=== PATIENT | male | born 1960 | race Caucasian/White ===

== ENCOUNTER → 2017-03-09 | Outpatient (CLI) | payer OTHER ==
[~2017-03-09] MED LIST: ALBU8.5H3 INH; AMLO5TAB2 PO; CARV12.52 PO; DOCU100C PO; ENAL20TA PO; FAMC250T PO; FLUT10.6 INH; FLUT15.88 NAS; GABA300C10 PO; HYDR-3307 PO; METH750T87 PO; OXYC5CAP4 PO; PANT40TA5 PO; ROSU5TAB PO; TEST100V2 IM; TRAM50TA2 PO
== END | disposition home or self-care (01) ==
LOC: RAD 13:34
PROVIDERS: ATTEND Neurological Surgery
DX: M51.26 Other intervertebral disc displacement, lumbar region (principal); M51.24 Other intervertebral disc displacement, thoracic region; M48.06 Spinal stenosis, lumbar region; N28.1 Cyst of kidney, acquired; G89.29 Other chronic pain; M47.896 Other spondylosis, lumbar region; Z98.1 Arthrodesis status
CPT/HCPCS: 72131; 72146

== ENCOUNTER → 2017-03-21 | Outpatient (CLI) | payer OTHER ==
[~2017-03-21] MED LIST changes: +GADOBUTROL 10 MMOL/10 ML PFS ONE
== END | disposition home or self-care (01) ==
LOC: RAD 13:27
PROVIDERS: ATTEND Family Medicine
DX: G31.84 Mild cognitive impairment of uncertain or unknown etiology (principal); G44.52 New daily persistent headache (NDPH); H53.8 Other visual disturbances
CPT/HCPCS: 70553; A9585

== ENCOUNTER → 2017-09-13 | Outpatient (CLI) | payer OTHER ==
[~2017-09-13] MED LIST changes: -ALBU8.5H3 INH; +ALBU8.5H8 INH; +CALC250T PO; +CEPH-368 PO; +CHOL100012 PO; +CYAN25003 PO; +DOCU-180 PO; -DOCU100C PO; -GADOBUTROL 10 MMOL/10 ML PFS ONE; +L. A1CAP8 PO; +OXYC5CAP2 PO; -OXYC5CAP4 PO; +SUMA100T4 PO; +VITA400C43 PO; +ZONI100C2 PO
== END | disposition home or self-care (01) ==
LOC: CARD 08:45
PROVIDERS: ATTEND Psychiatry & Neurology Child & Adolescent Psychiatry
DX: G43.111 Migraine with aura, intractable, with status migrainosus (principal); G44.021 Chronic cluster headache, intractable; R41.89 Other symptoms and signs involving cognitive functions and awareness
CPT/HCPCS: 95819

== ENCOUNTER → 2017-09-21 | Outpatient (CLI) | payer OTHER ==
[~2017-09-21] MED LIST changes: +GADOBUTROL 10 MMOL/10 ML PFS ONE
== END | disposition home or self-care (01) ==
LOC: RAD 07:49
PROVIDERS: ATTEND Otolaryngology
DX: R13.10 Dysphagia, unspecified (principal); J38.00 Paralysis of vocal cords and larynx, unspecified
CPT/HCPCS: 70543; 74220; A9585

== ENCOUNTER → 2017-12-01 | Outpatient (CLI) | payer OTHER ==
[~2017-12-01] MED LIST changes: -GADOBUTROL 10 MMOL/10 ML PFS ONE
== END | disposition home or self-care (01) ==
LOC: RAD 09:14
PROVIDERS: ATTEND Internal Medicine Infectious Disease
DX: Z79.2 Long term (current) use of antibiotics (principal); T81.4XXS Infection following a procedure, sequela; B95.61 Methicillin susceptible Staphylococcus aureus infection as the cause of diseases classified elsewhere
CPT/HCPCS: 36569; 76937; 77001; C1751

== ENCOUNTER → 2017-12-07 | Outpatient (CLI) | payer OTHER | END | disposition home or self-care (01) | LOC: CLISVCS 16:48 | PROVIDERS: ATTEND Internal Medicine Infectious Disease | DX: R07.89 Other chest pain (principal); R94.31 Abnormal electrocardiogram [ECG] [EKG] | CPT/HCPCS: 93005 ==

== ENCOUNTER → 2018-03-31 | Outpatient (CLI) | payer OTHER ==
[~2018-03-31] MED LIST changes: +GADOBUTROL 10 MMOL/10 ML PFS ONE
== END | disposition home or self-care (01) ==
LOC: RAD 10:57
PROVIDERS: ATTEND Family Medicine
DX: R41.840 Attention and concentration deficit (principal); R51 Headache; R42 Dizziness and giddiness; R53.1 Weakness; R41.3 Other amnesia
CPT/HCPCS: 70553; A9585

== ENCOUNTER → 2018-05-17 | Outpatient (CLI) | payer OTHER ==
[~2018-05-17] MED LIST changes: +EREN70AU INJ; -GADOBUTROL 10 MMOL/10 ML PFS ONE; +[UNRECOGNIZED DRUG - CODE] SC
== END | disposition home or self-care (01) ==
LOC: CFH 07:02
PROVIDERS: ATTEND Nurse Practitioner Family
DX: M48.02 Spinal stenosis, cervical region (principal); M47.892 Other spondylosis, cervical region; Z87.891 Personal history of nicotine dependence; Z88.5 Allergy status to narcotic agent
CPT/HCPCS: 72141

== ENCOUNTER 2018-05-24 06:18 | Day surgery (SDC) | payer OTHER ==
[~2018-05-24] VITALS: Ht 182.9 cm; Wt 84.3 kg
[2018-05-24] MEDS ORDERED: LIDOCAINE 1%-EPI 1:100K, 30ML ONE (07:01)
[2018-05-24] MEDS ORDERED: LACTATED RINGERS 1,000 ML IV SCH (07:10)
[2018-05-24 07:14] VITALS: BP 123/81
[2018-05-24] MEDS ORDERED: AMOXICILLIN PO (07:14)
[2018-05-24] MEDS ORDERED: FENTANYL PF 100 MCG/2ML ONE (07:49)
[2018-05-24] MEDS ORDERED: PROPOFOL 10 MG/ML, 20ML ONE (07:50)
[2018-05-24] MEDS ORDERED: KETOROLAC 30 MG/1 ML IV PRN (09:00)
[2018-05-24] MEDS ORDERED: HYDROcodone/APAP 7.5-325MG/15ML UDC PO PRN (09:00)
[2018-05-24] MEDS ORDERED: FENTANYL PF 100 MCG/2ML IV PRN (09:00)
[2018-05-24] MEDS ORDERED: ONDANSETRON 2MG/ML, 2ML IV PRN (09:00)
[2018-05-24] MEDS ORDERED: PROMETHAZINE 12.5 MG SUPP PR PRN (09:00)
[2018-05-24] MEDS ORDERED: MEPERIDINE/PF 25MG/0.5ML IVPush PRN (09:00)
[2018-05-24] MEDS ORDERED: LABETALOL 5MG/ML, 20ML IV PRN (09:00)
[2018-05-24] MEDS ORDERED: PROCHLORPERAZINE 5 MG/ML, 2ML IM PRN (09:00)
[2018-05-24] MEDS ORDERED: HYDROmorphone 1 MG/ML, 1ML IV PRN (09:00)
== END 2018-05-24 10:30 | disposition home or self-care (01) ==
LOC: OR 06:18 → OUT 10:30
PROVIDERS: ATTEND Otolaryngology
DX: J38.01 Paralysis of vocal cords and larynx, unilateral (principal); I69.354 Hemiplegia and hemiparesis following cerebral infarction affecting left non-dominant side; G43.909 Migraine, unspecified, not intractable, without status migrainosus; Z86.73 Personal history of transient ischemic attack (TIA), and cerebral infarction without residual deficits; Z88.6 Allergy status to analgesic agent; Z88.5 Allergy status to narcotic agent; Z88.8 Allergy status to other drugs, medicaments and biological substances; Z98.890 Other specified postprocedural states; Z87.891 Personal history of nicotine dependence
CPT/HCPCS: 31571; C1878; J2704; J3010; J7120; J3490

== ENCOUNTER → 2018-08-14 | Outpatient (CLI) | payer OTHER ==
[~2018-08-14] MED LIST changes: -AMLO5TAB2 PO; +AMLO5TAB7 PO; +AMOXICILLIN PO; +GADOBUTROL 10 MMOL/10 ML PFS ONE
== END | disposition home or self-care (01) ==
LOC: RAD 07:46
PROVIDERS: ATTEND Registered Nurse
DX: G43.109 Migraine with aura, not intractable, without status migrainosus (principal); R20.2 Paresthesia of skin
CPT/HCPCS: 70553; A9585

== ENCOUNTER → 2018-09-20 | Outpatient (CLI) | payer OTHER ==
[~2018-09-20] MED LIST changes: +AMLO-150 PO; -AMLO5TAB7 PO; -GADOBUTROL 10 MMOL/10 ML PFS ONE
== END | disposition home or self-care (01) ==
LOC: RAD 08:37
PROVIDERS: ATTEND Physical Medicine & Rehabilitation
DX: M48.02 Spinal stenosis, cervical region (principal)
CPT/HCPCS: 72141

== ENCOUNTER → 2018-11-21 | Outpatient (CLI) | payer OTHER | END | disposition home or self-care (01) | LOC: CFH 09:22 | PROVIDERS: ATTEND Neurological Surgery | DX: M50.322 Other cervical disc degeneration at C5-C6 level (principal) | CPT/HCPCS: 72040 ==

== ENCOUNTER 2019-03-09 10:16 | Day surgery (SDC) | payer OTHER ==
[~2019-03-09] VITALS: Ht 182.9 cm; Wt 96.4 kg
[2019-03-09 10:37] VITALS: BP 139/87
[2019-03-09] MEDS ORDERED: SODIUM CHLORIDE 0.9% 1,000 ML IV SCH (11:00)
[2019-03-09] MEDS ORDERED: PLEASE ENTER HEIGHT AND WEIGHT MC SCH (11:00)
[2019-03-09] MEDS ORDERED: HYDR25TA6 PO (11:06)
[2019-03-09] MEDS ORDERED: NEBI5TAB3 PO (11:06)
[2019-03-09] MEDS ORDERED: GABA600T7 PO (11:06)
[2019-03-09] MEDS ORDERED: FLUT1BLS INH (11:06)
[2019-03-09] MEDS ORDERED: LOSA100T14 PO (11:06)
[2019-03-09] MEDS ORDERED: PROPOFOL 10 MG/ML, 20ML ONE (11:45)
== END 2019-03-09 13:20 | disposition home or self-care (01) ==
LOC: CACL 10:16
PROVIDERS: ATTEND Internal Medicine Cardiovascular Disease
DX: I34.0 Nonrheumatic mitral (valve) insufficiency (principal); I34.1 Nonrheumatic mitral (valve) prolapse; I10 Essential (primary) hypertension; E78.2 Mixed hyperlipidemia; Z79.899 Other long term (current) drug therapy; Z88.8 Allergy status to other drugs, medicaments and biological substances; Z90.49 Acquired absence of other specified parts of digestive tract; Z98.890 Other specified postprocedural states
CPT/HCPCS: 93312; 93325; J2704

== ENCOUNTER 2019-03-21 09:46 | Day surgery (SDC) | payer OTHER ==
[~2019-03-21] VITALS: Ht 182.9 cm; Wt 97.3 kg
[~2019-03-21 09:46] MED LIST changes: +FLUT1BLS INH; +GABA600T7 PO; +HYDR25TA6 PO; +LOSA100T14 PO; +NEBI5TAB3 PO
[2019-03-21 10:10] VITALS: BP 136/79
[2019-03-21] MEDS ORDERED: PLEASE ENTER HEIGHT AND WEIGHT MC SCH (10:30)
[2019-03-21] MEDS ORDERED: SODIUM CHLORIDE 0.9% 1,000 ML IV SCH ×2 (11:00→12:33)
[2019-03-21] MEDS ORDERED: FENTANYL PF 100 MCG/2ML ONE (11:36)
[2019-03-21] MEDS ORDERED: BIVALIRUDIN 250 MG ONE (11:36)
[2019-03-21] MEDS ORDERED: MIDAZOLAM 1 MG/ML, 5ML ONE (11:36)
[2019-03-21] MEDS ORDERED: VERAPAMIL 2.5 MG/ML, 2ML ONE (11:36)
[2019-03-21] MEDS ORDERED: TICAGRELOR 90 MG TABLET ONE (11:36)
[2019-03-21] MEDS ORDERED: HEPARIN 1,000 UNITS/ML, 10ML ONE (11:37)
== END 2019-03-21 14:05 | disposition home or self-care (01) ==
LOC: CACL 09:46
PROVIDERS: ATTEND Internal Medicine Cardiovascular Disease
DX: I25.10 Atherosclerotic heart disease of native coronary artery without angina pectoris (principal); I25.83 Coronary atherosclerosis due to lipid rich plaque; I34.0 Nonrheumatic mitral (valve) insufficiency; I10 Essential (primary) hypertension; E78.2 Mixed hyperlipidemia; Z79.899 Other long term (current) drug therapy; Z87.891 Personal history of nicotine dependence; Z88.8 Allergy status to other drugs, medicaments and biological substances; Z91.048 Other nonmedicinal substance allergy status
CPT/HCPCS: 36415; 80048; 85025; 93458; 99156; C1769; C1894; J2250; J3010; J7030; Q9967; J0583; J1644

== ENCOUNTER 2019-04-11 12:59 | Emergency (ER) | payer OTHER ==
[~2019-04-11] VITALS: Ht 182.9 cm; Wt 95.0 kg
--- NOTE | 2019-04-11 14:00 | NUR ---
Pt arrived to room with friend at 1315; placed on monitor; VSS; pt AO; shows no signs of distress; skin pink warm and dry. 1330 MD to bedside; spouse at bedside; known cardiac valve issues; recent cath negative for coronary arterial disease. Family verbalizes understanding of POC.
[2019-04-11 14:12] LABS: BASOPHILS # (AUTO) 0.03 x10^3/uL (0-0.1); BASOPHILS % (AUTO) 0 % (0-1); EOSINOPHILS # (AUTO) 0.04 x10^3/uL (0-0.4); EOSINOPHILS % (AUTO) 1 % (1-7); LYMPHOCYTES # (AUTO) 1.99 x10^3/uL (1-3.4); LYMPHOCYTES % (AUTO) 29 % (22-44); MD NO; MEAN CORPUSCULAR HEMOGLOBIN 30.5 pg (27.5-34.5); MEAN CORPUSCULAR VOLUME 92.3 fL (81-97); MEAN PLATELET VOLUME 8.3 fL (7.4-10.4); MONOCYTES # (AUTO) 0.51 x10^3/uL (0.2-0.8); MONOCYTES % (AUTO) 8 % (2-9); NEUTROPHILS # (AUTO) 4.21 x10^3/uL (1.8-6.8); NEUTROPHILS % (AUTO) 62 % (42-75); PLATELET COUNT 248 x10^3/uL (130-400); RED BLOOD COUNT 5.41 x10^6/uL (4.38-5.82)
[2019-04-11 14:20] LABS: ALBUMIN 4.1 g/dL (3.4-5.0); ANION GAP 7 mmol/L (5-15); CALCIUM 9.6 mg/dL (8.5-10.1); CHLORIDE 106 mmol/L (98-107); CREATININE 1.47 mg/dL (0.7-1.3)
[2019-04-11 15:13] VITALS: BP 134/77
--- NOTE | 2019-04-11 15:39 | NUR ---
Discharge education given by RN; pt verbalized understanding; fu with cardiothoracic surgeon reinforced
== END 2019-04-11 15:41 | disposition home or self-care (01) ==
LOC: ED 14:43
DX: R07.89 Other chest pain (principal); R06.00 Dyspnea, unspecified; I10 Essential (primary) hypertension; E78.00 Pure hypercholesterolemia, unspecified; E78.5 Hyperlipidemia, unspecified; Z87.891 Personal history of nicotine dependence; Z90.49 Acquired absence of other specified parts of digestive tract; Z86.73 Personal history of transient ischemic attack (TIA), and cerebral infarction without residual deficits
CPT/HCPCS: 36415; 71045; 80048; 82040; 83880; 85025; 93005; 99284

== ENCOUNTER 2019-05-03 08:00 | Outpatient (CLI) | payer OTHER | END 2019-05-03 23:59 | disposition home or self-care (01) | LOC: CARD 08:00 | PROVIDERS: ATTEND Thoracic Surgery (Cardiothoracic Vascular Surgery) | DX: Z01.810 Encounter for preprocedural cardiovascular examination (principal); I34.0 Nonrheumatic mitral (valve) insufficiency; I11.0 Hypertensive heart disease with heart failure; I50.9 Heart failure, unspecified; E78.5 Hyperlipidemia, unspecified; G43.909 Migraine, unspecified, not intractable, without status migrainosus; Z88.5 Allergy status to narcotic agent; Z90.49 Acquired absence of other specified parts of digestive tract; Z87.891 Personal history of nicotine dependence | CPT/HCPCS: 93880 ==

== ENCOUNTER 2019-05-04 04:30 | Inpatient (IN) | payer OTHER ==
[~2019-05-04] VITALS: Ht 182.9 cm; Wt 96.9 kg
[2019-05-09 07:39] VITALS: BP 132/84
== END 2019-05-09 10:26 | disposition home or self-care (01) | DRG 219 ==
LOC: 5SO 04:30 → DCLOUNGE 06:54 → CCU 07:16 → CSU 08:36 → 5SO 05-05 14:09 → DCLOUNGE 05-09 10:03
PROVIDERS: ADMIT Thoracic Surgery (Cardiothoracic Vascular Surgery); ATTEND Thoracic Surgery (Cardiothoracic Vascular Surgery)
PROC: 02UG08Z Supplement Mitral Valve with Zooplastic Tissue, Open Approach (ICD-10-PCS; principal; 2019-05-04)
PROC: 5A1221Z Performance of Cardiac Output, Continuous (ICD-10-PCS; 2019-05-04)
PROC: B246ZZ4 Ultrasonography of Right and Left Heart, Transesophageal (ICD-10-PCS; 2019-05-04)
DX: I34.0 Nonrheumatic mitral (valve) insufficiency (principal); I50.33 Acute on chronic diastolic (congestive) heart failure; I34.1 Nonrheumatic mitral (valve) prolapse; K59.00 Constipation, unspecified; I11.0 Hypertensive heart disease with heart failure; E78.5 Hyperlipidemia, unspecified; Z87.891 Personal history of nicotine dependence; Z79.01 Long term (current) use of anticoagulants; Z90.49 Acquired absence of other specified parts of digestive tract; Z88.8 Allergy status to other drugs, medicaments and biological substances; Z88.5 Allergy status to narcotic agent
CPT/HCPCS: 36415; 36600; 74018; J3490; J7613; J7626; S0017; 71045; 71046; 80048; 80053; 81003; 82040; 82330; 82800; 82803; 82810; 82947; 82962; 83036; 83735; 84132; 84295; 85014; 85018; 85025; 85049; 85347; 85610; 85730; 86850; 86900; 86923; 87081; 88305; 93005; 93312; 93321; 93325; 94002; 94150; 94640; G0378; J0697; J1644; J1815; J1885; J2250; J2405; J2704; J2720; J3010; J3370; J3475; J3480; P9045; P9047; C1751; C1760; J0171; J0780; J2370; J2930; J7050

== ENCOUNTER 2019-05-10 10:01 | Inpatient (IN) | payer OTHER ==
[~2019-05-10] VITALS: Ht 182.9 cm; Wt 92.0 kg
[2019-05-11 14:05] VITALS: BP 96/63
== END 2019-05-11 18:55 | disposition home or self-care (01) | DRG 73 ==
LOC: ED 11:43 → EDIP 12:19 → 5SO 15:33
PROVIDERS: ADMIT Internal Medicine; ATTEND Internal Medicine
DX: G90.9 Disorder of the autonomic nervous system, unspecified (principal); G93.41 Metabolic encephalopathy; I48.92 Unspecified atrial flutter; E78.00 Pure hypercholesterolemia, unspecified; E78.5 Hyperlipidemia, unspecified; G43.109 Migraine with aura, not intractable, without status migrainosus; I11.9 Hypertensive heart disease without heart failure; K21.9 Gastro-esophageal reflux disease without esophagitis; R79.1 Abnormal coagulation profile; T45.515A Adverse effect of anticoagulants, initial encounter; Z79.01 Long term (current) use of anticoagulants; Z80.3 Family history of malignant neoplasm of breast; Z80.8 Family history of malignant neoplasm of other organs or systems; Z88.6 Allergy status to analgesic agent; Z88.5 Allergy status to narcotic agent; Z91.048 Other nonmedicinal substance allergy status; Z86.73 Personal history of transient ischemic attack (TIA), and cerebral infarction without residual deficits; Z87.891 Personal history of nicotine dependence; Z95.2 Presence of prosthetic heart valve; Z83.3 Family history of diabetes mellitus; Z82.49 Family history of ischemic heart disease and other diseases of the circulatory system
CPT/HCPCS: 0399T; 36415; 70450; 71045; 80053; 81003; 83735; 84100; 85025; 85610; 87040; 93005; 93306; 99285; G0378

== ENCOUNTER 2019-08-15 10:07 | Emergency (ER) | payer OTHER ==
[~2019-08-15] VITALS: Ht 182.9 cm; Wt 93.0 kg
[~2019-08-15 10:07] MED LIST changes: +AMIO200T42 PO; +ASPI-515 PO; +ASPI81TA45 PO; +FLUT15.845 NAS; -FLUT15.88 NAS; +HYDR-3237 PO; -HYDR-3307 PO; +HYDR-36 PO; +MUPI22OI2 TD; +OXYC5TAB3 PO; +WARF2TAB99 PO; +WARF3TAB PO-COUM
[2019-08-15 10:10] VITALS: BP 125/82
--- NOTE | 2019-08-15 10:33 | NUR ---
ELECTRIC APPLIANCE INSTALLER NOTE: EKG TAKEN IN TRIAGE, REVIEWED BY HUGO POOLE. THIS RN DISCUSSED PT'S NEURO SX WITH MD, PT STATES DIZZINESS AND DISORIENTATION HE IS EXPERIENCING IS TYPICAL FOR MIGRAINE SX, PT HAS HX MIGRAINE AND TIA ASSOC WITH MIGRAINE. MD TO EVALUATE PT. PT A&OX4, NEURO INTACT. AMBULATORY TO ROOM 13 WITH STEADY GAIT, ALL MONITORS APPLIED.
--- NOTE | 2019-08-15 10:58 | NUR ---
PT IN BED, DENIES ANY NEEDS OR CONCERNS. CALL LIGHT IN REACH.
[2019-08-15 11:21] LABS: BASOPHILS # (AUTO) 0.04 x10^3/uL (0-0.1); BASOPHILS % (AUTO) 1 % (0-1); EOSINOPHILS # (AUTO) 0.05 x10^3/uL (0-0.4); EOSINOPHILS % (AUTO) 1 % (1-7); LYMPHOCYTES # (AUTO) 1.68 x10^3/uL (1-3.4); LYMPHOCYTES % (AUTO) 34 % (22-44); MD NO; MEAN CORPUSCULAR HEMOGLOBIN 26.7 pg (27.5-34.5); MEAN CORPUSCULAR HGB CONC 31.4 g/dL (33.2-36.2); MEAN CORPUSCULAR VOLUME 85.1 fL (81-97); MEAN PLATELET VOLUME 8.2 fL (7.4-10.4); MONOCYTES # (AUTO) 0.43 x10^3/uL (0.2-0.8); MONOCYTES % (AUTO) 9 % (2-9); NEUTROPHILS # (AUTO) 2.81 x10^3/uL (1.8-6.8); NEUTROPHILS % (AUTO) 56 % (42-75); PLATELET COUNT 295 x10^3/uL (130-400); RED BLOOD COUNT 5.38 x10^6/uL (4.38-5.82); RED CELL DISTRIBUTION WIDTH 14.8 % (9.4-14.8)
[2019-08-15 11:35] LABS: ALBUMIN 4.2 g/dL (3.4-5.0); ANION GAP 6 mmol/L (5-15); CHLORIDE 105 mmol/L (98-107)
[2019-08-15 11:40] LABS: CREATININE 1.55 mg/dL (0.7-1.3); TROPONIN I < 0.015 ng/mL (0.000-0.045)
--- NOTE | 2019-08-15 12:37 | NUR ---
PT SITTING IN BED, DENIES ANY CURRENT NEEDS OR CONCERNS.
[2019-08-15 12:50] LABS: TROPONIN I < 0.015 ng/mL (0.000-0.045)
== END 2019-08-15 13:08 | disposition home or self-care (01) ==
LOC: ED 13:05
DX: R07.2 Precordial pain (principal); R07.1 Chest pain on breathing; I10 Essential (primary) hypertension; K21.9 Gastro-esophageal reflux disease without esophagitis; E78.5 Hyperlipidemia, unspecified; I25.2 Old myocardial infarction; Z86.73 Personal history of transient ischemic attack (TIA), and cerebral infarction without residual deficits; Z87.891 Personal history of nicotine dependence; Z90.49 Acquired absence of other specified parts of digestive tract
CPT/HCPCS: 36415; 71045; 80048; 82040; 84484; 85025; 93005; 99284

== ENCOUNTER 2019-10-18 19:06 | Emergency (ER) | payer OTHER ==
[~2019-10-18] VITALS: Ht 182.9 cm; Wt 93.0 kg
[2019-10-18 19:49] LABS: BASOPHILS # (AUTO) 0.05 x10^3/uL (0-0.1); BASOPHILS % (AUTO) 1 % (0-1); EOSINOPHILS # (AUTO) 0.07 x10^3/uL (0-0.4); EOSINOPHILS % (AUTO) 1 % (1-7); LYMPHOCYTES % (AUTO) 40 % (22-44); MD NO; MEAN CORPUSCULAR HEMOGLOBIN 26.4 pg (27.5-34.5); MEAN CORPUSCULAR HGB CONC 31.6 g/dL (33.2-36.2); MEAN CORPUSCULAR VOLUME 83.4 fL (81-97); MEAN PLATELET VOLUME 8.7 fL (7.4-10.4); MONOCYTES % (AUTO) 9 % (2-9); NEUTROPHILS # (AUTO) 3.47 x10^3/uL (1.8-6.8); NEUTROPHILS % (AUTO) 50 % (42-75); PLATELET COUNT 277 x10^3/uL (130-400); RED CELL DISTRIBUTION WIDTH 16.7 % (9.4-14.8)
--- NOTE | 2019-10-18 19:58 | NUR ---
PT CAME IN CO OF PAIN IN HIS LEFT CHEST UNDERNEATH HIS ARMPIT INTHE THE PHLEBOSTATIC AXIS. PT DENIES NAUSEA, SOB, DIZZYNESS. EKG DONE. URINE AND BLOOD HAS BEEN SENT TO LAB. 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 IS BEDSIDE. WARM BLANKET PROVIDED.
[2019-10-18 19:59] LABS: ANION GAP 6 mmol/L (5-15); CALCIUM 8.9 mg/dL (8.5-10.1); CHLORIDE 107 mmol/L (98-107); CREATININE 1.22 mg/dL (0.7-1.3)
[2019-10-18] MEDS ORDERED: OMNIPAQUE 350 MG/ML, 100ML BOTTLE ONE (20:00)
[2019-10-18] MEDS ORDERED: NEBI5TAB3 PO (20:05)
[2019-10-18] MEDS ORDERED: LOSA100T14 PO (20:05)
[2019-10-18] MEDS ORDERED: PANTOPRAZOLE (20:05)
[2019-10-18] MEDS ORDERED: ERENUMAB (20:05)
--- NOTE | 2019-10-18 20:06 | NUR ---
PT IS GOING TO CT
[2019-10-18] MEDS ORDERED: KETOROLAC 30 MG/1 ML ONE (20:16)
[2019-10-18 20:20] LABS: MICROSCOPIC NOT IND
[2019-10-18 20:23] LABS: CULTURE INDICATED? NO
[2019-10-18] MEDS ORDERED: KETOROLAC 30 MG/1 ML IVPush ONE (20:30)
[2019-10-18 20:33] LABS: TROPONIN I < 0.015 ng/mL (0.000-0.045)
--- NOTE | 2019-10-18 20:35 | NUR ---
PT REPORTS PAIN IMPROVEMENT TO A 3/10.
[2019-10-18 20:36] VITALS: BP 146/85
== END 2019-10-18 21:52 | disposition home or self-care (01) ==
LOC: ED 21:37
DX: R07.89 Other chest pain (principal); I10 Essential (primary) hypertension; I25.2 Old myocardial infarction; E78.5 Hyperlipidemia, unspecified; Z86.73 Personal history of transient ischemic attack (TIA), and cerebral infarction without residual deficits; Z90.49 Acquired absence of other specified parts of digestive tract
CPT/HCPCS: 36415; 71046; 71275; 80048; 81003; 84484; 85025; 93005; 96374; 99284; J1885; Q9967